=== PATIENT | male | born 2005 | race Asian ===

== ENCOUNTER 2023-09-13 12:34 | Emergency (ER) | payer OTHER ==
[~2023-09-13] VITALS: Ht 175.3 cm; Wt 80.1 kg
[2023-09-13] MEDS ORDERED: ACET32TAB PO (12:54)
[2023-09-13 17:06] VITALS: BP 121/74; TEMP 98.8; O2SAT 100
[2023-09-13] MEDS: ACETAMINOPHEN TAB 650MG DOSE (2X325MG) PO ONE (17:32)
[2023-09-13] MEDS ORDERED: IBUP-1022 PO (18:00)
[2023-09-13] MEDS ORDERED: AMOX500C PO (18:00)
[2023-09-13] MEDS: AMOXICILLIN 500 MG CAP PO ONE (18:09)
== END 2023-09-13 18:15 | disposition home or self-care (01) ==
LOC: EDBD 12:34 → M ED 12:34
DX: J02.0 Streptococcal pharyngitis (principal); R20.2 Paresthesia of skin; R51.9 Headache, unspecified; Z79.2 Long term (current) use of antibiotics; Z79.1 Long term (current) use of non-steroidal anti-inflammatories (NSAID)